=== PATIENT | female | born 1950 | race Caucasian/White ===

== ENCOUNTER 2017-06-20 16:15 | Emergency (ER) | payer OTHER, MEDICARE, BC ==
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
[2017-06-20 17:33] LABS: ALT 13 U/L (7-52); Albumin 4.2 g/dL (3.2-5.2); Alkaline Phosphatase 92 U/L (34-104); BUN/Creatinine Ratio 15.2 (8-20); Blood Urea Nitrogen 17 mg/dL (6-24); CO2 Carbon Dioxide 27 mmol/L (22-32); Calcium 9.4 mg/dL (8.6-10.3); Chloride 105 mmol/L (101-111); EGFR African American 62.4 (>60); EGFR Non-African American 48.5 (>60); Globulin 3.3 g/dL (2-4); Glucose 98 mg/dL (70-100); Sodium 139 mmol/L (133-145); Total Protein 7.5 g/dL (6.4-8.9)
[2017-06-20 17:34] LABS: Hematocrit 41 % (35-47); Hemoglobin 13.1 g/dl (12.0-16.0); Mean Corpuscular HGB Conc 32 g/dl (31-36); Mean Corpuscular Hemoglobin 28 pg (27-31); Mean Corpuscular Volume 86 fL (80-97); Mean Platelet Volume 9 um3 (7.4-10.4); Red Blood Count 4.73 10^6/ul (4.0-5.4); Red Cell Distribution Width 15 % (10.5-15); White Blood Count 9.1 10^3/ul (3.5-10.8)
[2017-06-20 17:57] LABS: Anion Gap 7 mmol/L (2-11)
[2017-06-20] MEDS ORDERED: Iodixanol* (CONTRAST) 320 MG/ML 100 ML SDV IV ONE (17:58)
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
[2017-06-20] MEDS ORDERED: Acetaminophen TAB* 325 MG PO ONE (19:25)
[2017-06-20 19:43] VITALS: BP 159/81
[2017-06-20] MEDS ORDERED: HYDROcodone/ACETAMIN 5-325 MG* 1 TAB PO ONE (19:55)
== END 2017-06-20 19:44 | disposition home or self-care (01) ==
LOC: ED 16:15
DX: M54.2 Cervicalgia (principal); R07.9 Chest pain, unspecified; R07.89 Other chest pain; Z04.1 Encounter for examination and observation following transport accident
CPT/HCPCS: 36415; 70450; 71260; 72125; 74177; 80053; 85025; 99284; A9270-GY; Q9967